=== PATIENT | female | born 2000 | race Caucasian/White ===

== ENCOUNTER 2023-04-30 13:55 | Outpatient (REF) | payer MEDICAID, SELFPAY ==
[2023-04-30 16:55] LABS: HCG Quantitative 80 mIU/mL
== END 2023-04-30 13:56 | disposition home or self-care (01) ==
LOC: HO.HHCL 13:55
PROVIDERS: Visit Provider Internal Medicine
DX: N92.6 Irregular menstruation, unspecified (principal)
CPT/HCPCS: 36415; 84702

== ENCOUNTER 2025-09-15 17:22 | Outpatient (REF) | payer MEDICAID, SELFPAY ==
--- OUTSIDE RECORDS SUMMARY | 2025-09-15 11:00 | XMS_ITS | Encounter Summary ---
Author Organization [employer] Address [address] [place] [address] [address] [place] [address] Care Team Providers Care Cabin Crew Name Role Phone Nancy Bryan Primary Care Provider [phone] Reason for Referral * Imaging (Routine) - Pending Review Specialty Diagnoses / Procedures Referred By Contac t Referred To Contact Radiology Diagnoses Checking of intrauterine device Procedures US Pelvis Transvaginal Nancy Bryan ANP [address] [place] [address] Phone: tel: fax: [facility] Referral ID Status Reason Start Date Expiration Date V isits Requested Visits Authorized [id number] Pending Review 09/15/2025 09/15/2026 1 1 * Imaging (Routine) - Pending Review Specialty Diagnoses / Procedures Referred By Contac t Referred To Contact Radiology Diagnoses Checking of intrauterine device Procedures Us Pelvis complete Nancy Bryan ANP [address] [place] [address] Phone: tel: fax: [facility] Referral ID Status Reason Start Date Expiration Date V isits Requested Visits Authorized [id number] Pending Review 09/15/2025 09/15/2026 1 1 * Consultation (Routine) - Authorized Specialty Diagnoses / Procedures Referred By Contac t Referred To Contact Behavioral Health Diagnoses Depression with anxiety Procedures Referral to Behavioral Health Nancy Bryan ANP [address] [place] [address] Phone: tel: fax: Referral ID Status Reason Start Date Expiration Date Visits Requested Visits Authorized [id number] Authorized Specialty Services Required 09/15/2025 09/15/2026 1 1 Encounter Details Date Type Department Care Team (Late st Contact Info) Description 09/15/2025 11:00 AM EST Office Visit [facility] [address] [place] [address] Nancy Bryan ANP [address] [place] [address] Mild persistent asthma without complication (Primary Dx); Class 2 obesity without serious comorbidity with body mass index (BMI) of 37.0 to 37.9 in adult, unspecified obesity type; Migraine without aura and without status migrainosus, not intractable; Encounter for immunization; Routine screening for STI (sexually transmitted infection); Depression with anxiety; Positive test; Checking of intrauterine device Social History Tobacco Use Types Packs/Day Years Used Date Smoking Tobacco: Never Passive Smoke Exposure: Never Smokeless Tobacco: Never Tobacco Cessation:Counseling Given: Not Answered Alcohol Use Standard Drinks/Week Comments Never 0 (1 standard drink = 0.6 oz pur e alcohol) Depression Answer Date Recorded Patient Health Questionnaire-9 Score 5 09/15/2025 Patient Health Questionnaire-9 Score 5 09/15/2025 Last PHQ-9: Questionnaire Data Not on file 1 11/16/2024 Housing Stability Answer Date Recorded What is your housing situation today? I have anand santillan 01/01/[address] you li ve. Do you have problems with any of the following? None of the above 01/01/2024 Food Insecurity Answer Date Recorded Within the past 12 months, y ou worried that your food would run out before you got money to buy more: Never True 01/01/2024 Within the past 12 months,th e food you bought just didn't last and you didn't have enough money to get more: Never True Transportation Answer Date Recorded In the past 12 months, has l ack of transportation kept you from medical appts, meetings, work or from getting things needed for daily living? No 01/01/2024 Utilities Answer Date Recorded In the past 12 months, has t he electric, gas, oil or water company threatened to shut off services in your home? No 01/01/2024 Depression Answer Date Recorded Patient Health Questionnaire-2 Score 1 09/15/2025 Internet Access Answer Date Recorded Internet Access Q1 Yes 10/27/2024 Internet Access Q2 Not on file 10/27/2024 Comments Unknown Sex and Gender Information Value Date Recorded Sex Assigned at Female 08/11/2022 10:16 AM EDT Legal Sex Female 10:16 AM EDT Gender Identity Female 08/11/2022 10:16 AM EDT Sexual Orientation Choose not to disclose 2021 10:16 AM EDT documented as of this encounter Last Filed Vital Signs Vital Sign Reading Time Taken Comments Blood Pressure 120/62 09/15/2025 11:11 AM EST Pulse 94 09/15/2025 11:11 AM EST Temperature 36.1 C (96.9 F) 09/15/2025 11:11 AM EST Respiratory Rate 15 09/15/2025 11:11 AM EST Oxygen Saturation 98% 09/15/2025 11:11 AM EST Inhaled Oxygen Concentration - - Weight 86.2 kg (190 lb) 09/15/2025 11:11 AM EST Height 157.5 cm (5' 2 ) 09/15/2025 11:11 AM EST Body Mass Index 34.75 09/15/2025 11:11 AM EST documented in this encounter Functional Status * Over the past 2 weeks, how often have you been bothered by any of the following problems? Question Answer Date of Assessment Author Patient Health Questionnaire -2 Score 1 09/15/2025 11:17 AM EST Nichole Martinez MA * Little interest or pleasure in doing things Answer Date of Assessment Author Several days 09/15/2025 11:17 AM EST Nichole Martinez MA * Feeling down, depressed, or hopeless Answer Date of Assessment Author Not at all 09/15/2025 11:17 AM EST Nichole Martinez MA * Trouble falling or staying asleep, or sleeping too much Answer Date of Assessment Author Several days 09/15/2025 11:17 AM EST Nichole Martinez MA * Feeling tired or having little energy Answer Date of Assessment Author Several days 09/15/2025 11:17 AM Nichole Ram MA * Poor appetite or overeating Answer Date of Assessment Author Several days 09/15/2025 11:17 AM Nichole Ram MA * Feeling bad about yourself - or that you are a failure or have let yourself or your family down Answer Date of Assessment Author Not at all 09/15/2025 11:17 AM Nichole Ram MA * Trouble concentrating on things, such as reading the newspaper or watching television Answer Date of Assessment Author Several days 09/15/2025 11:17 AM Nichole Ram MA * Moving or speaking so slowly that other people could have noticed? Or the opposite - being so fidgety or restless that you have been moving around a lot more than usual. Answer Date of Assessment Author Not at all 09/15/2025 11:17 AM Nichole Ram MA * Thoughts that you would be better off or hurting yourself in some way Answer Date of Assessment Author Not at all 09/15/2025 11:17 AM Nichole Ram MA * Patient Health Questionnaire-9 Score Answer Date of Assessment Author 5 09/15/2025 11:17 AM Nichole Ram MA * Over the last 2 weeks, how often have you been bothered by any of the following problems? Question Answer Date of Assessment Author Feeling nervous, anxious, or on edge 1 09/15/2025 11:13 AM Nichole Ram MA Not being able to stop or co ntrol worrying 1 09/15/2025 11:13 AM Nichole Ram MA Worrying too much about diff erent things 1 09/15/2025 11:13 AM Nichole Ram MA Trouble relaxing 2 09/15/2025 11:13 AM Nichole Ram MA Being so restless that it is hard to sit still 2 09/15/2025 11:13 AM Nichole Ram MA Becoming easily annoyed or irritable 3 09/15/2025 11:13 AM Nichole Ram MA Feeling afraid as if somethi ng awful might happen 1 09/15/2025 11:13 AM Nichole Ram MA DARCY-7 Total Score 11 09/15/2025 11:13 AM Nichole Ram MA documented as of this encounter Progress Notes * ABNER Renee - 09/15/2025 11:00 AM EST SUBJECTIVE: Susanna Souza is a 24 y.o. year old female who presents for follow up. Denies recent illness, injury, or hospitalization. PMH asthma, heartburn Liletta IUD in place 12/2023 Lives w/ 2 kids. Stay at home mom, In school for heavy equipment operator dev. Stressed, would like to see BH. Non-smoker Here today for follow-up/weight check. BMI Readings from Last 3 Encounters: 09/15/25 34.75 kg/m?? 06/15/25 37.13 kg/m?? 12/30/24 38.23 kg/m?? Wt Readings from Last 5 Encounters: 09/15/25 190 lb (86.2 kg) 06/15/25 203 lb (92.1 kg) 12/30/24 209 lb (94.8 kg) 06/29/24 217 lb 9.6 oz (98.7 kg) 02/05/24 198 lb 9.6 oz (90.1 kg) Referred last visit to Dr. Noriega for wt mgmt. Topiramate increased last visit for add'l migraine prophylaxis and wt loss. Headaches - Constant headaches for the past 3 months, episodes lasting a couple of days - Reports stress - Topiramate used for headache prophylaxis; ineffective - Previously tried magnesium; ineffective - Denies noticing appetite changes exc as she attributes to depression IUD concerns and symptoms - IUD placed (12/2023) - Recent scare last week with -like symptoms - Home tests: initial false positive, subsequent tests negative - [place]-associated spotting: a few dots of blood mid-intercourse - Desires confirmation that IUD is correctly positioned STI screening context - Recent breakup; now reunited with a different partner - Requests urine-based STI testing (prefers urine over swab) Social History Social History Narrative Not on file Problem List[1] Surgical History[2] Family History[3] Review of Systems Constitutional: Negative for chills and fever. HENT: Negative for sore throat. Respiratory: Negative for cough and shortness of breath. Cardiovascular: Negative for chest pain. Gastrointestinal: Negative for constipation and diarrhea. Endocrine: Negative for polydipsia, polyphagia and polyuria. Genitourinary: Negative for dysuria. OBJECTIVE: Vitals: 09/15/25 1111 BP: 120/62 BP Location: Left arm Patient Position: Sitting BP Cuff Size: Large adult Pulse: 94 Resp: 15 Temp: 96.9 ??F (36.1 ??C) TempSrc: Oral SpO2: 98% Weight: 190 lb (86.2 kg) Height: 5' 2 (1.575 m) Physical Exam Constitutional: General: She is not in acute distress. Appearance: Normal appearance. She is not ill-appearing. HENT: Head: Normocephalic and atraumatic. Eyes: General: No scleral icterus. Extraocular Movements: Extraocular movements intact. Pupils: Pupils are equal, round, and reactive to light. Cardiovascular: Rate and Rhythm: Normal rate and regular rhythm. Pulmonary: Effort: Pulmonary effort is normal. No accessory muscle usage or respiratory distress. Breath sounds: Normal breath sounds. Skin: General: Skin is warm and dry. Neurological: Mental Status: She is alert and oriented to person, place, and time. Cranial Nerves: No cranial nerve deficit. Gait: Gait normal. Psychiatric: Mood and Affect: Mood normal. Behavior: Behavior normal. ASSESSMENT/PLAN Diagnoses and all orders for this visit: Mild persistent asthma Need neb for home use when sick Lungs CTAB today Taking albuterol a few times/wk We will try symbicort in its place and pt will increase to BID use if using PRN > 2d/wk Class 2 obesity without serious comorbidity with body mass index (BMI) of 37.0 to 37.9 in adult, unspecified obesity type (Primary) Gave info for Dr. Noriega follow-up - Lipid Panel, Standard; Future Migraine without aura and without status migrainosus, not intractable Topiramate ineffective, magnesium also tried previously not effective. Start: - amitriptyline (Elavil) 10 MG tablet; Take 1 tablet (10 mg) by mouth at bedtime. Reviewed side effects of new medication, when to call clinic, when to stop med (such as w/ worsening of depression with mental health meds or occurrence of rash, allergic reaction). Encounter for immunization - FLU VACCINE TRIVALENT [id number] (Fluarix) 19 yrs + Routine screening for STI (sexually transmitted infection) - Hepatitis C Antibody with Reflex to HCV, RNA, Quantitative, Real-Time PCR; Future - HIV-1/2 Antigen and Antibodies, Fourth Generation, with Reflexes; Future - Chlamydia/N. Gonorrhoeae, PCR, Urine - Syphilis Screen; Future Depression with anxiety - Referral to Behavioral Health; Future Positive test With subsequent negatives. Low suspicion for but will recheck: - POCT Urine (negative) Checking of intrauterine device - Us Pelvis complete; Future - US Pelvis Transvaginal; Future This note was drafted using Ambient (AI) technology. The patient/patient's guardian has been informed and has consented to the use of this technology: Yes Based on our discussion, I have outlined the following instructions for you: - Stop taking topiramate for your headaches. - Take amitriptyline 10 mg at bedtime to help prevent migraines and support sleep. - While taking amitriptyline, watch for any signs that your depression is getting worse or for any other side effects. If you notice your depression getting worse, stop taking amitriptyline and let the clinic know. If you notice any other side effects, contact the clinic. - If amitriptyline does not help and you tolerate it well, you may be able to increase the dose next month. - Complete all the recommended sexually transmitted infection (STI) tests: blood tests for HIV, hepatitis C, and syphilis, and urine tests for gonorrhea and chlamydia. -It's best to do cholesterol test while fasting - Complete a pelvic ultrasound to check the position of your intrauterine device (IUD). Next appointment(s): Referral to Dr. Noriega???s office for wt mgmt Thank you again for your visit, and we look forward to supporting you in your journey to better health. 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 [4] Current Outpatient Medications on File Prior to Visit Medication Sig Dispense Refill albuterol (Ventolin HFA) 108 (90 Base) MCG/ACT inhaler INHALE 2 PUFFS EVERY 4 (FOUR) HOURS IF NEEDED FOR WHEEZING OR SHORTNESS OF BREATH. 18 g 2 EPINEPHrine (Epipen) 0.3 MG/0.3ML injection syringe Inject 0.3 mL (0.3 mg) as directed 1 (one) timeif needed for anaphylaxis for up to 1 dose. Inject into upper leg. Call 911 after use. 1 each 0 ibuprofen 600 MG tablet TAKE 1 TABLET BY MOUTH EVERY 8 HOURS IF NEEDED FOR MODERATE PAIN. 60 tablet0 Spacer/Aero-Holding Chambers (Pro Comfort Spacer Adult[place] [facility] with albuterol 1 each 0 Tirzepatide-Weight Management (Zepbound) 7.5 MG/0.5ML solution auto-injector Inject 0.5 mL (7.5 mg)under the skin 1 (one) time per week. INJECT ONE PEN (=7.5 MG) SUBCUTANEOUSLY ONCE A WEEK 2 mL 2 [DISCONTINUED] topiramate (Topamax) 50 MG tablet Take 1 tablet (50 mg) by mouth every 12 (twelve) hours. 180 tablet 1 No current facility-administered medications on file prior to visit. documented in this encounter Plan of Treatment Upcoming Encounters Date Type Department Care Team (Late st Contact Info) Description 11/15/2025 4:00 PM EST Telemedicine [facility] [address] [place] [address] Nancy Bryan ANP [address] [place] [address] Scheduled Orders Name Type Priority Associated Diagnoses Orde r Schedule Lipid Panel, Standard Lab Routine Class 2 obesity without serious comorbidity with body mass index (BMI) of 37.0 to 37.9 in adult, unspecified obesity type Expected: 09/15/2025 (Approximate), Expires: 09/15/2026 Hepatitis C Antibody with Reflex to HCV, RNA, Quantitative, Real-Time PCR Lab Routine Routine screening for STI (sexually transmitted infection) Expected: 09/15/2025 (Approximate), Expires: 09/15/2026 HIV-1/2 Antigen and Antibodies, Fourth Generation, with Reflexes Lab Routine Routine screening for STI (sexually transmitted infection) Expected: 09/15/2025 (Approximate), Expires: 09/15/2026 Us Pelvis complete Imaging Routine Checking of intrauterine device Expected: 09/15/2025, Expires: 09/15/2026 US Pelvis Transvaginal Imaging Routine Checking of intrauterine device Expected: 09/15/2025, Expires: 09/15/2026 Chlamydia/N. Gonorrhoeae, PCR, Urine Lab Routine Routine screening for STI (sexually transmitted infection) Ordered: 09/15/2025 Syphilis Screen Lab Routine Routine screening for STI (sexually transmitted infection) Expected: 09/15/2025 (Approximate), Expires: 09/15/2026 documented as of this encounter Procedures Procedure Name Priority Date/Time Associated Diagnosis Comments POCT , URINE Routine 09/15/2025 11:55 AM EST Positive test documented in this encounter Results * POCT Urine (09/15/2025 11:55 AM EST) Preg Test, Ur Negative Negative, Indeterminate, None Detected, Trace, 3+, Specimen unsatisfactory for evaluation, Weakly Positive, 1+, 2+ QC Media Lot # [id number] Lot# Expiration Date [id number] Urine 09/15/2025 11:5 5 AM EST [facility] POINT OF CARE TEST ENTER/EDIT OR DERABLES Final Result documented in this encounter Visit Diagnoses Diagnosis Mild persistent asthma without complication- Primary Class 2 obesity without serious comorbidity with body mass index (BMI) of 37.0 to 37.9 in adult, unspecified obesity type Migraine without aura and without status migrainosus, not intractable Encounter for immunization Routine screening for STI (sexually transmitted infection) Screening examination for venereal disease Depression with anxiety Dysthymic disorder Positive test examination or test, positive result Checking of intrauterine device documented in this encounter Additional Health Concerns Assessment Noted Time PHQ-9 Depression Total Score: 5 09/15/20 25 11:17 AM EST documented as of this encounter Care Teams Cabin Crew Relationship Specialty Start Date End Date Nancy Bryan ANP [address] [place] [address] PCP - General Family Medicine 10/14/22 documented as of this encounter
--- OUTSIDE RECORDS SUMMARY | 2025-09-15 20:00 | XMS_ITS | Clinical Summary ---
Author Organization [employer] Address [address] [facility] 7t [place] [address] Care Team Providers Care Crew Chief Name Role Phone Nancy Bryan Primary Care Provider [phone] Allergies No known active allergies Medications * This document contains information received from the source organization and may not represent a complete record from that organization. Spacer/Aero-Hold ing Chambers (Pro Comfort Spacer Adult) miscIndications: Mild persistent asthma without complication Use with albuterol 1 each 01/17/20 23 Active EPINEPHrine (Epipen) 0.3 MG/0.3ML injection syringeIndicatio ns:Allergic reaction, subsequent encounter Inject 0.3 mL (0.3 mg) as directed 1 (one) time if needed for anaphylaxis for up to 1 dose. Inject into upper leg. Call 911 after use. 1 each 12/31/19 25 Active ibuprofen 600 MG tabletIndication s:Acute pain of left knee TAKE 1 TABLET BY MOUTH EVERY 8 HOURS IF NEEDED FOR MODERATE PAIN. 60 tablet 01/03/20 25 Active Tirzepatide-Weig ht Management (Zepbound) 7.5 MG/0.5ML solution auto-injectorInd ications:Class 2 obesity with body mass index (BMI) of 38.0 to 38.9 in adult, unspecified obesity type, unspecified whether serious comorbidity present Inject 0.5 mL (7.5 mg) under the skin 1 (one) time per week. INJECT ONE PEN (=7.5 MG) SUBCUTANEOUSLY ONCE A WEEK 2 mL 2 04/04/20 25 Active amitriptyline (Elavil) 10 MG tabletIndication s:Migraine without aura and without status migrainosus, not intractable Take 1 tablet (10 mg) by mouth at bedtime. 90 tablet 1 09/15/20 25 026 Active budesonide-formo terol (Symbicort) 80-4.5 MCG/ACT inhalerIndicatio ns:Mild persistent asthma without complication Take 2 puffs as needed up to 4 times/d. If using 2+ days/wk, start taking BID. Rinse mouth with water after use to reduce aftertaste and incidence of candidiasis. Do not swallow. 1 each 09/15/20 25 Active albuterol (2.5 MG/3ML) 0.083% nebulizer solutionIndicati ons:Mild persistent asthma without complication Take 3 mL (2.5 mg) by nebulization every 6 (six) hours if needed for wheezing or shortness of breath. 75 mL 1 09/15/20 25 026 Active topiramate (Topamax) 50 MG tabletIndication s:Migraine without aura and without status migrainosus, not intractable Take 1 tablet (50 mg) by mouth every 12 (twelve) hours. 180 tablet 1 06/15/20 25 025 Discontin ued(Ineff ective) albuterol (Ventolin HFA) 108 (90 Base) MCG/ACT inhalerIndicatio ns:Mild persistent asthma without complication INHALE 2 PUFFS EVERY 4 (FOUR) HOURS IF NEEDED FOR WHEEZING OR SHORTNESS OF BREATH. 18 g 2 06/15/20 25 025 Discontin ued(Thera py completed ) Active Problems Problem Noted Date Diagnosed Date H/O section 09/15/2025 Migraine without aura and wi thout status migrainosus, not intractable 12/30/2024 Overview (12/30/2024): d/t frequency, will start prophylactic: topiramate Class 2 obesity without seri ous comorbidity with body mass index (BMI) of 37.0 to 37.9 in adult 12/14/2024 Healthcare maintenance 06/29/2024 Overview (06/29/2024): Pap 05/2023 NIL ty womens Non-smoker Not yet due for mammo Class 1 obesity 05/07/2023 Low back pain 05/07/2023 Missed period 04/30/2023 Headache 04/30/2023 Assessment & Plan (04/30/2023 1:52 PM EDT): Drink plenty of fluids rest Mild persistent asthma 09/17/2022 Presence of intrauterine contraceptive device 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 Myopia 03/24/2018 Deep overbite 04/07/2017 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 Visual impairment 10/26/2013 Resolved Problems Problem Noted Date Diagnosed Date Resolved Date Heartburn 05/07/2023 06/29/2024 Encounters Date Type Department Care Team Description 09/15/2025 11:00 AM EST Office Visit [facility] [address] [place] [phone] Nancy Bryan ANP Mild persistent asthma without complication (Primary Dx); Class 2 obesity without serious comorbidity with body mass index (BMI) of 37.0 to 37.9 in adult, unspecified obesity type; Migraine without aura and without status migrainosus, not intractable; Encounter for immunization; Routine screening for STI (sexually transmitted infection); Depression with anxiety; Positive test; Checking of intrauterine device 09/15/2025 Telephone [facility] [address] [place] [phone] Nancy Bryan ANP Durable Medical Equipment (nebulizer) 09/15/2025 Travel 09/13/[address] [address] Nancy Bryan ANP chart prep 07/03/[address] [address] Nancy Bryan ANP dec recall from Last 3 Months Immunizations Immunization Administration Dates Next Due DTaP, 5 pertussis antigens 03/16/2006,,07/01/2002,04/29,03/09/2002 HPV, Quadrivalent 04/25/2014,12/22/2013,10/26/19 14 Hep A, ped/adol, 2 dose 07/23/2015,01/03/2015 Hep B, Adolescent or Pediatric 07/01/2002,2001,2001 IPV 03/16/2006, 2,04/29/2002,03/09 Influenza injectable quadriv alent IIV4 with preservative 11/04/2019 Influenza injectable quadriv alent preservative free 10/17/2022,08/21/2020,08/05/2018,07/23,07/23/2015,01/03/2015 Influenza, IIV3, injectable 09/25/2021, 3 Influenza, Split (incl. kentrell fied surface antigen) 10/26/2013 Influenza, seasonal, injecta ble, preservative free 09/15/2025,06/29/2024,09/25/2021 MMR 03/16/2006,12/30/2002 Meningococcal MCV4P ACYW-135 05/10/2019,10/26/19 14 Pfizer Covid-19 Vaccine 12+ 09/25/2021,,02/15/2021 Pfizer Covid-19 Vaccine 12+ Bivalent 10/17/2022 Pneumococcal Conjugate PCV 20 06/29/2024 Pneumococcal Conjugate PCV 7 03/29/2003, 07/01/2002,04/29/2002,03/09 Tdap 10/29/2023,09/25/2021,10/26/2013 Varicella 03/01/2008,12/30/2002 Social History Tobacco Use Types Packs/Day Years [...] Q2 Not on file 10/27/2024 Comments Unknown Intention Date Recorded No desire to become (finding) 0 06/15/2025 Sex and Gender Information Value Date Recorded Sex Assigned at Female 08/11/2022 10:16 AM EDT Legal Sex Female 10:16 AM EDT Gender Identity Female 08/11/2022 10:16 AM EDT Sexual Orientation Choose not to disclose 2021 10:16 AM EDT Last Filed Vital Signs Vital Sign Reading [...] Mass Index 34.75 09/15/2025 11:11 AM EST Plan of Treatment Upcoming Encounters Date Type Department Care Team (Late st Contact Info) Description 11/15/2025 4:00 PM EST Telemedicine [facility] [address] [place], [place] [phone] Nancy Bryan ANP [address] [place], [place] [phone] Health Maintenance Due Date Last Done Comments HIV Screening 2001 Lipid Panel 2001 Meningococcal B Vaccine (1 of 2 - Standard) 2017 Hepatitis C Screening 12/28/2019 Chlamydia and Gonorrhea Screening 11/14/2024 11/14/2023, 11/14/2023, 11/14/2023, Additional history exists COVID-19 Vaccine ( season) 2025 11/06/2022, 10/17/2022, 09/25/2021, Additional history exists SDOH Screening 10/27/2025 10/27/2024 Pap Smear 06/11/2026 06/11/2023 Alcohol/Substance Use Screening 06/15/2026 06/15/2025 Disability Screening 06/15/2026 06/15/2025 Family Planning (PISQ) 06/15/2026 06/15/2025 Depression Screening 09/15/2026 09/15/2025, 09/15/20 Tobacco Screening 09/15/2026 09/15/2025 DTaP/Tdap/Td Vaccines (9 - Td or Tdap) 10/29/2033 10/29/2023, 09/25/2021, 10/26/2013, Additional history exists Zoster Vaccines (1 of 2) 12/28/2051 RSV Patients and Patients Aged 60 years or older (1 - 1-dose 75+ series) 2076 Hepatitis B Vaccines Completed 07/01/2002, 02/04/2002, 2001 IPV Vaccines Completed 03/16/2006, 09/12, 04/29/2002, Additional history exists HPV Vaccines Completed 04/25/2014, 12/10, 10/26/2013 Hepatitis A Vaccines Completed 07/23/2015, 01/04/20 15 Meningococcal Vaccine Completed 05/10/2019, 014 Pneumococcal Vaccine: Pediatrics (0 to 5 Years) and At-Risk Patients (6 to 49) Years Completed 06/29/2024, 03/29/2003, 07/01/2002, Additional history exists Influenza Vaccine Completed 09/15/2025, , 10/17/2022, Additional history exists HIB Vaccines Aged Out No longer eligi ble based on patient's age to complete this topic RSV under 20 months Aged Out No longe r eligible based on patient's age to complete this topic Rotavirus Vaccines Aged Out No longer eligible based on patient's age to complete this topic Procedures Procedure Name Priority Date/Time Associated Diagnosis Comments POCT , URINE Routine 09/15/2025 11:55 AM EST Positive test HM PAP/HPV Routine 06/11/2023 CHLAMYDIA/N. GONORRHOEAE RNA, TMA, UROGENITAL Routine 09/27/2022 6:09 AM EST from Last 3 Months or Most Recently Relevant to Health Maintenance Results * POCT Urine (09/15/2025 11:55 AM EST) Preg Test, Ur Negative Negative, Indeterminate, None Detected, Trace, 3+, Specimen unsatisfactory for evaluation, Weakly Positive, 1+, 2+ QC Media Lot # [id number] Lot# Expiration Date [id number] Urine 09/15/2025 11:5 5 AM EST [facility] POINT OF CARE TEST ENTER/EDIT OR DERABLES Final Result * Hm Pap Smear (06/11/2023) Pathologist [facility] Pap Negative for intraephithelial lesion or malignancy Negative for intraephithelial lesion or malignancy, Other [facility] Provider [place] HEALTH MAINTENANCE Final Result * Chlamydia/N. Gonorrhoeae RNA, TMA, Urogenitial (09/27/2022 6:09 AM EST) Pathologist [facility] Chlamydia trachomatis RNA, TMA, Urogenital NOT DETECTED NOT DETECTED [facility] Neisseria gonorrhoeae RNA, TMA, Urogenital NOT DETECTED NOT DETECTED [facility] Comment [facility] Comment: The analytical performance characteristics of this assay, when used to test SurePath(TM) specimens have been determined by [facility]. The modifications have not been cleared or approved by the FDA. This assay has been validated pursuant to the CLIA regulations and is used for clinical purposes. For additional information, please refer to https://education.[employer]/faq/AVG776 (This link is being provided for information/ educational purposes only.) NO COLLECTION DATE RECEIVED. WE HAVE USED THE DATE THE SPECIMEN WAS RECEIVED BY THIS LABORATORY THE COLLECTION DATE. IF THIS IS INCORRECT, PLEASE CONTACT CLIENT SERVICES. PHONE NUMBER: 09/26/2022 11: 52 AM EST Narrative [facility] - 09/27/2022 6:09 AM EST FASTING: UNKNOWN us [facility] MICROBIOLOGY - GENERA L ORDERABLES Final Result [facility] [address] [facility] [facility] [place] [address] [facility] [address], ([address]) [place] [address] from Last 3 Months or Most Recently Relevant to Health Maintenance Insurance Care Teams Crew Chief Relationship Specialty Start Date End Date Nancy Bryan ANP [address] [place] [address] PCP - General Family Medicine 10/14/22
--- OUTSIDE RECORDS SUMMARY | 2025-09-15 20:00 | XMS_ITS | Encounter Summary ---
Author Organization [employer] Address [address] [facility] [address] 7[address] [place] [address] Care Team Providers Care Director University Name Role Phone Nancy Bryan Primary Care Provider [phone] Reason for Visit * Reason Comments Med Refill Encounter Details Date Type Department Care Team ([facility] st Contact Info) Description 07/01/2024 Refill [facility] [address] [place] [phone] Krish Serrano MD [address] [place] [address] Social History Tobacco Use Types Packs/Day Years Used Date Smoking Tobacco: Never Passive Smoke Exposure: Never Smokeless Tobacco: Never Alcohol Use Standard Drinks/Week Comments Never 0 (1 standard drink = 0.6 oz pur e alcohol) Depression Answer Date Recorded Patient Health Questionnaire-9 Score 7 06/29/2024 Patient Health Questionnaire-9 Score 7 06/29/2024 Last PHQ-9: Questionnaire Data Not on file 0 06/29/2024 Housing Stability Answer Date Recorded What is [...] Date Recorded Patient Health Questionnaire-2 Score 1 06/29/2024 Comments No Sex and Gender Information Value Date Recorded Sex Assigned at Female 08/11/2022 10:16 AM EDT Legal Sex Female 10:16 AM EDT Gender Identity Female 08/11/2022 10:16 AM EDT Sexual Orientation Choose not to disclose 2021 10:16 AM EDT documented as of this encounter Plan of Treatment Upcoming Encounters Date Type Department Care Team (Late st Contact Info) Description 11/15/2025 4:00 PM EST Telemedicine [facility] [address] [place] [phone] Nancy Bryan ANP [address] [place] [address] documented as of this encounter Visit Diagnoses Not on filedocumented in this encounter Additional Health Concerns Assessment Noted Time PHQ-9 Depression Total Score: 7 06/29/20 24 2:14 PM EDT documented as of this encounter Care Teams Director University Relationship Specialty Start Date End Date Nancy Bryan ANP [address] [place] [phone] PCP - General Family Medicine 10/14/22 documented as of this encounter
--- OUTSIDE RECORDS SUMMARY | 2025-09-15 20:00 | XMS_ITS | Encounter Summary ---
Author Organization [employer] Address [address] [facility] 7t [place] [address] Care Team Providers Care Technical Aid Name Role Phone Nancy Bryan Primary Care Provider [phone] Encounter Details Date Type Department Care Team (Latest Contact Info) Description 09/15/2025 Travel Social History Tobacco Use Types Packs/Day Years [...] AM EDT documented as of this encounter Functional Status * Over the past 2 weeks, how often have you been bothered by any of the following problems? Question Answer Date of Assessment Author Patient Health Questionnaire -2 Score 1 09/15/2025 11:17 AM Nichole Ram MA * Little interest or pleasure in doing things Answer Date of Assessment Author Several days 09/15/2025 11:17 AM Nichole Ram MA * Feeling down, depressed, or hopeless Answer Date of Assessment Author Not at all 09/15/2025 11:17 AM Nichole Ram MA * Trouble falling or staying asleep, or sleeping too much Answer Date of Assessment Author Several days 09/15/2025 11:17 AM Nichole Ram MA * Feeling tired or having little [...] Ram MA documented as of this encounter Plan of Treatment Upcoming Encounters Date Type Department Care Team (Late st Contact Info) Description 11/15/2025 4:00 PM EST Telemedicine [facility] [address] [place] [address] Nancy Bryan ANP [address] [place] [address] documented as of this encounter Visit Diagnoses Not on filedocumented in this encounter Additional Health Concerns Assessment Noted Time PHQ-9 Depression Total Score: 5 09/15/20 11:17 AM EST documented as of this encounter Care Teams Technical Aid Relationship Specialty Start Date End Date Nancy Bryan ANP [address] [place] [address] PCP - General Family Medicine 10/14/22 documented as of this encounter
--- OUTSIDE RECORDS SUMMARY | 2025-09-15 20:00 | XMS_ITS | Encounter Summary ---
Author Organization [employer] Address [address] [facility] 7t [place] [address] Care Team Providers Care Avionics Safety Inspector Name Role Phone Nancy Bryan Primary Care Provider [phone] Reason for Visit * Reason Onset Date Comments chart prep 09/13/2025 Encounter Details Date Type Department Care Team ([facility] st Contact Info) Description 09/13/2025 Telephone [facility] [address] [facility], [place] [phone] Nancy Bryan ANP [address] [place], [place] [phone] chart prep Social History Tobacco Use Types Packs/Day Years [...] Recorded Patient Health Questionnaire-2 Score 1 06/29/2024 Internet Access Answer Date Recorded Internet Access Q1 Yes 10/27/2024 Internet Access Q2 Not on file 10/27/2024 Comments Unknown Sex and Gender Information Value Date Recorded Sex Assigned at Female 08/11/2022 10:16 AM EDT Legal Sex Female 10:16 AM EDT Gender Identity Female 08/11/2022 10:16 AM EDT Sexual Orientation Choose not to disclose 2021 10:16 AM EDT documented as of this encounter Miscellaneous Notes * Telephone Encounter - Nichole Martinez MA - 09/13/2025 11:25 AM EST Chart Prep Labs: not applicable Images: not applicable Referrals: complete Vaccines due: Covid and Flu Screenings: STI screening and HIV screening Overdue care gaps: PHQ-9 and DARCY-7 documented in this encounter Plan of Treatment Upcoming Encounters Date Type Department Care Team (Late st Contact Info) Description 11/15/2025 4:00 PM EST Telemedicine [facility] [address] [place] [phone] Nancy Bryan ANP [address] [place] [address] documented as of this encounter Visit Diagnoses Not on filedocumented in this encounter Additional Health Concerns Assessment Noted Time PHQ-9 Depression Total Score: 7 06/29/20 24 2:14 PM EDT documented as of this encounter Care Teams Avionics Safety Inspector Relationship Specialty Start Date End Date Nancy Bryan ANP [address] [place] [phone] PCP - General Family Medicine 10/14/22 documented as of this encounter
--- OUTSIDE RECORDS SUMMARY | 2025-09-15 20:00 | XMS_ITS | Encounter Summary ---
Author Organization [employer] Address [address] [facility] 7t [place] [address] Care Team Providers Care Ship Ceiler Name Role Phone Nancy Bryan Primary Care Provider [phone] Reason for Visit * Reason Comments Med Change Request Encounter Details Date Type Department Care Team ([facility] st Contact Info) Description 10/29/2022 Refill [facility] [address] [place], [place] [phone] Nancy Bryan ANP [address] [place] [address] Elevated serum hCG Social History Tobacco Use Types Packs/Day Years Used Date Smoking Tobacco: Never Passive Smoke Exposure: Never Smokeless Tobacco: Never Alcohol Use Standard Drinks/Week Comments Never 0 (1 standard drink = 0.6 oz pur e alcohol) Depression Answer Date Recorded Patient Health Questionnaire-2 Score 0 10/17/2022 Comments Unknown Sex and Gender Information Value Date Recorded Sex Assigned at Female 08/11/2022 10:16 AM EDT Legal Sex Female 10:16 AM EDT Gender Identity Female 08/11/2022 10:16 AM EDT Sexual Orientation Choose not to disclose 2021 10:16 AM EDT COVID-19 Exposure Response Date Recorded In the last 10 days, have yo u been in contact with someone who was confirmed or suspected to have Coronavirus/COVID-19? No / Unsure 10/22/2022 3:40 PM EST documented as of this encounter Miscellaneous Notes * Telephone Encounter - Yun Roland - 11/03/2022 11:33 AM EST PA initiated using MH form for prenate vit documented in this encounter Plan of Treatment Upcoming Encounters Date Type Department Care Team (Late st Contact Info) Description 11/15/2025 4:00 PM EST Telemedicine [facility] [address] [place] [address] Nancy Bryan ANP [address] [place] [address] documented as of this encounter Visit Diagnoses Diagnosis Elevated serum hCG documented in this encounter Care Teams Ship Ceiler Relationship Specialty Start Date End Date Nancy Bryan ANP [address] [place], [place] [phone] PCP - General Family Medicine 10/14/22 documented as of this encounter
--- OUTSIDE RECORDS SUMMARY | 2025-09-15 20:00 | XMS_ITS | Encounter Summary ---
Author Organization [employer] Address [address] [facility] 7t [place] [address] Care Team Providers Care Technical Sme Name Role Phone Nancy Bryna Primary Care Provider [phone] Reason for Visit * Reason Onset Date Comments Durable Medical Equipment 09/15/2025 nebuli zer Encounter Details Date Type Department Care Team ([facility] st Contact Info) Description 09/15/2025 Telephone [facility] [address] [place], [place] [phone] Nancy Bryan ANP [address] [place] [address] Durable Medical Equipment (nebulizer) Social History Tobacco Use Types Packs/Day Years [...] Ram MA documented as of this encounter Miscellaneous Notes * Telephone Encounter - Nesha Moser - 09/15/2025 2:08 PM EST RX for nebulizer generated and sent to PCP for signature via [employer]. Once signed, will be faxed to [facility] and sent to scan. If patient calls to check status on above, please advise them to contact Kyle at [phone]. * Telephone Encounter - Neshajosey Stoveriz - 09/15/2025 2:08 PM EST ----- Message from Nancy Bryan sent at 09/15/2025 11:56 AM EST ----- Hello! Can you please generate Rx for nebulizer for home use? Thanks documented in this encounter Plan of Treatment Upcoming Encounters Date Type Department Care Team (Late st Contact Info) Description 11/15/2025 4:00 PM EST Telemedicine [facility] [address] [place] [phone] Nancy Bryan ANP [address] [place] [address] documented as of this encounter Visit Diagnoses Not on filedocumented in this encounter Additional Health Concerns Assessment Noted Time PHQ-9 Depression Total Score: 5 09/15/20 25 11:17 AM EST documented as of this encounter Care Teams Technical Sme Relationship Specialty Start Date End Date Nancy Bryan ANP [address] [place] [phone] PCP - General Family Medicine 10/14/22 documented as of this encounter
[2025-09-16 01:46] LABS: CT PCR Urine NOT DETECTED (Not Detect.); NG PCR Urine NOT DETECTED (Not Detect.)
== END 2025-09-15 17:23 | disposition home or self-care (01) ==
LOC: HO.HHCLNP 17:22
PROVIDERS: Visit Provider Nurse Practitioner Primary Care
DX: Z20.2 Contact with and (suspected) exposure to infections with a predominantly sexual mode of transmission (principal)
CPT/HCPCS: 87491; 87591